=== PATIENT | male | born 1970 | race Caucasian/White ===

== ENCOUNTER 2017-05-12 16:29 | Emergency (ER) | payer SELFPAY | END 2017-05-12 23:05 | disposition home or self-care (01) | LOC: D.ER 16:29 | DX: S16.1XXA Strain of muscle, fascia and tendon at neck level, initial encounter (principal); V49.9XXA Car occupant (driver) (passenger) injured in unspecified traffic accident, initial encounter; Y93.89 Activity, other specified; Y92.410 Unspecified street and highway as the place of occurrence of the external cause; S29.012A Strain of muscle and tendon of back wall of thorax, initial encounter; S39.012A Strain of muscle, fascia and tendon of lower back, initial encounter; F07.81 Postconcussional syndrome; M62.838 Other muscle spasm ==

== ENCOUNTER 2017-05-14 14:02 | Emergency (ER) | payer SELFPAY | END 2017-05-14 19:56 | disposition home or self-care (01) | LOC: D.ER 14:02 | DX: S16.1XXA Strain of muscle, fascia and tendon at neck level, initial encounter (principal); V49.9XXA Car occupant (driver) (passenger) injured in unspecified traffic accident, initial encounter; Y93.89 Activity, other specified; Y92.410 Unspecified street and highway as the place of occurrence of the external cause; M54.12 Radiculopathy, cervical region; F17.200 Nicotine dependence, unspecified, uncomplicated ==